=== PATIENT | female | born 1985 | race Asian ===

== ENCOUNTER 2019-11-28 18:10 | Emergency (ER) | payer MEDICAID ==
[~2019-11-28] VITALS: Ht 160 cm; Wt 46.7 kg
--- NOTE | 2019-11-28 18:15 | NUR ---
ER BED 16 PT CAME IN WITH CHEIF COMPLAINT OF BRUISING ON HER R LOWER EXT. STATES THAT 2 DAYS AGO THERE WAS SOME TENDERNESS AND MILD SWELLING BUT THAT ITS GONE NOW. NO SWELLING NOTED TO BLE AT THIS TIME. PT ALSO DENIES PAIN OR DISCOMFORT OF DIFFICULTY WALKING. AWAITING TO BE SEN BY
[2019-11-28 19:09] VITALS: BP 126/72
--- NOTE | 2019-11-28 19:10 | NUR ---
DOPPLER US TECH CURRENTLY IN PTS ROOM, PERFORMING DOPPLER. AWAITING RESULTS.
== END 2019-11-28 19:58 | disposition home or self-care (01) ==
LOC: ER 18:22
DX: M79.661 Pain in right lower leg (principal); R22.41 Localized swelling, mass and lump, right lower limb; J45.909 Unspecified asthma, uncomplicated; Z91.011 Allergy to milk products; Z91.018 Allergy to other foods; Z86.718 Personal history of other venous thrombosis and embolism
CPT/HCPCS: 93971-TC

== ENCOUNTER 2020-09-07 05:14 | Emergency (ER) | payer MEDICAID ==
[~2020-09-07] VITALS: Ht 160 cm; Wt 47.6 kg
--- NOTE | 2020-09-07 05:23 | NUR ---
PATIENT CAME TO ER BED 16 C/O RIGHT UPPER ABDOMINAL PAIN SINCE TONIGHT. PATIENT STATES THAT SHE IS CURRENTLY ON HER MENSTRUAL PERIOD. PATIENT IS ALERT AND ORIENTED x4. DENIES SHORTNESS OF BREATH. CONNECTED TO THE AUDIO VISUAL FACILITIES ENGINEER.
--- NOTE | 2020-09-07 05:30 | NUR ---
BLOOD COLLECTED AND SENT TO THE LAB
[2020-09-07] MEDS ORDERED: ONDANSETRON HCL/PF 4 MG/2 ML VIAL ONE (05:45)
[2020-09-07] MEDS ORDERED: MORPHINE SULFATE INJ 4 MG/ML DISP.SYRIN ONE (05:45)
[2020-09-07 06:00] LABS: BASOPHILS # (AUTO) 0.1 /CMM (0.0-0.2); BASOPHILS % (AUTO) 0.9 % (0.0-2.0); EOSINOPHILS % (AUTO) 2.8 % (0.0-6.0); HEMATOCRIT 40 % (33-45); HEMOGLOBIN 13.5 g/dL (11.5-14.8); LYMPHOCYTES # (AUTO) 1.9 /CMM (0.8-4.8); LYMPHOCYTES % (AUTO) 28.7 % (20.0-44.0); MEAN CORPUSCULAR HGB CONC 34 g/dl (31.0-36.0); MEAN CORPUSCULAR VOLUME 93 fL (82-100); MONOCYTES # (AUTO) 0.7 /CMM (0.1-1.30); MONOCYTES % (AUTO) 10.9 % (2.0-12.0); NEUTROPHILS # (AUTO) 3.7 /CMM (1.8-8.9); NEUTROPHILS % (AUTO) 56.7 % (43.0-81.0); PLATELET COUNT (AUTO) 287 /CMM (150-450); WHITE BLOOD COUNT (AUTO) 6.4 K/uL (4.3-11.0)
[2020-09-07] MEDS ORDERED: ONDANSETRON HCL/PF 4 MG/2 ML VIAL IVP ONE (06:00)
[2020-09-07] MEDS ORDERED: MORPHINE SULFATE INJ 2 MG/ML DISP.SYRIN IV ONE (06:00)
[2020-09-07] MEDS ORDERED: IV NS 0.9% 500 ML BAG IV ONE (06:00)
[2020-09-07 06:09] LABS: CREATININE 0.7 mg/dL (0.6-1.3); POTASSIUM 4.1 mmol/L (3.5-5.1)
[2020-09-07 06:14] LABS: ALBUMIN 3.9 g/dL (3.4-5.0); BILIRUBIN,DIRECT 0.1 mg/dL (0.0-0.2); BILIRUBIN,TOTAL 0.4 mg/dL (0.2-1.0); TOTAL PROTEIN, SERUM 7.8 g/dL (6.4-8.2)
[2020-09-07] MEDS ORDERED: HYDROMORPHONE INJ 2 MG/ML DISP.SYRIN IV ONE ×2 (06:30→09:00)
[2020-09-07] MEDS ORDERED: HYDROMORPHONE 1 MG/1 ML DISP.SYRIN ONE (06:38)
[2020-09-07] MEDS ORDERED: IOHEXOL-300 100 ML VIAL IV ONE (06:55)
[2020-09-07] MEDS ORDERED: CT SWABBABLE VALVE TRANS SET 1 EA INFUS.SET MC ONE (06:56)
[2020-09-07] MEDS ORDERED: IV NS 0.9% 250 ML IV ONE (06:56)
--- NOTE | 2020-09-07 07:48 | NUR ---
urine collected and sent to the lab
[2020-09-07 08:13] LABS: BILIRUBIN,URINE Negative (NEGATIVE); COLOR,URINE LIGHT YELLOW (YELLOW); LEUKOCYTE ESTERASE ,URINE Negative (NEGATIVE); NITRITE, URINE Negative (NEGATIVE); PROTEIN,URINE Negative (NEGATIVE); UGLUCOSE Negative (NEGATIVE); UROBILINOGEN,URINE 0.2 EU/dL (0.2)
[2020-09-07 08:34] LABS: BACTERIA,URINE Rare /HPF (None Seen); WBC,URINE 0-2 /HPF (0-3)
[2020-09-07 08:35] LABS: SQUAMOUS EPITHELIAL CELL,UR Few /HPF (None Seen)
[2020-09-07] MEDS ORDERED: HYDROMORPHONE INJ 2 MG/ML DISP.SYRIN ONE (08:55)
[2020-09-07] MEDS ORDERED: OXYC-133 PO (08:55)
[2020-09-07 09:13] VITALS: BP 109/64
--- NOTE | 2020-09-07 09:13 | NUR ---
Patient discharged to home in stable condition. Written and verbal after care instructions given. Patient verbalizes understanding of instruction.
== END 2020-09-07 09:13 | disposition home or self-care (01) ==
LOC: ER 05:16
DX: R10.13 Epigastric pain (principal); N80.1 Endometriosis of ovary; J45.909 Unspecified asthma, uncomplicated; Z98.890 Other specified postprocedural states; Z91.011 Allergy to milk products; Z91.018 Allergy to other foods; Z79.899 Other long term (current) drug therapy
CPT/HCPCS: 36415; 71045; 74177; 76705; 80048; 80076; 81001; 83690; 84703; 85025; 96361; 96374; 96375; 96376; 99285; J1170 ×2; J2270; J2405; J7040; J7050; Q9967

== ENCOUNTER 2021-03-06 06:39 | Emergency (ER) | payer MEDICAID ==
[~2021-03-06] VITALS: Ht 160 cm; Wt 43.1 kg
[~2021-03-06 06:39] MED LIST: OXYC-133 PO
--- NOTE | 2021-03-06 07:05 | NUR ---
PT BIBSELF C/O LOWER ABD PAIN X2 DAYS. PT AAOX4 BREATHING EVENLY AND UNLABORED. PT ATTACHED TO MONITOR AND POX. MD AT BEDSIDE FOR EVAL. RT FA 20G INITATED AND BLOOD OBTAINED AND SENT TO LAB. PT GIVEN BLANKET AND CALL LIGHT WITHIN REACH
[2021-03-06] MEDS ORDERED: HYDROMORPHONE 1 MG/1 ML DISP.SYRIN ONE (07:18)
[2021-03-06] MEDS ORDERED: ONDANSETRON HCL/PF 4 MG/2 ML VIAL ONE (07:18)
[2021-03-06] MEDS ORDERED: IV NS 0.9% 1,000 ML BAG IV ONE (07:30)
[2021-03-06] MEDS ORDERED: ONDANSETRON HCL/PF 4 MG/2 ML VIAL IVP ONE (07:30)
[2021-03-06] MEDS ORDERED: HYDROMORPHONE INJ 2 MG/ML DISP.SYRIN IV ONE (07:30)
--- NOTE | 2021-03-06 07:41 | NUR ---
GAVE REPORT TO ROBSON JONES FOR PHIL
[2021-03-06 07:42] LABS: BASOPHILS % (AUTO) 0.3 % (0.0-2.0); EOSINOPHILS % (AUTO) 1.7 % (0.0-6.0); HEMATOCRIT 38 % (33-45); HEMOGLOBIN 12.7 g/dL (11.5-14.8); LYMPHOCYTES # (AUTO) 1.2 K/uL (0.8-4.8); LYMPHOCYTES % (AUTO) 10.2 % (20.0-44.0); MEAN CORPUSCULAR HGB CONC 33 g/dl (31.0-36.0); MEAN CORPUSCULAR VOLUME 98 fL (82-100); MONOCYTES # (AUTO) 0.5 K/uL (0.1-1.30); MONOCYTES % (AUTO) 4.2 % (2.0-12.0); NEUTROPHILS # (AUTO) 9.9 K/uL (1.8-8.9); NEUTROPHILS % (AUTO) 83.6 % (43.0-81.0); PLATELET COUNT (AUTO) 276 K/uL (150-450); RED BLOOD CELL COUNT(AUTO) 3.94 MIL/uL (4.0-5.2); WHITE BLOOD COUNT (AUTO) 11.9 K/uL (4.3-11.0)
[2021-03-06 07:51] LABS: CALCIUM, SERUM 8.5 mg/dL (8.5-10.1); CREATININE 0.8 mg/dL (0.6-1.3); POTASSIUM 3.7 mmol/L (3.5-5.1)
[2021-03-06 07:56] LABS: ALBUMIN 3.8 g/dL (3.4-5.0); BILIRUBIN,DIRECT 0.1 mg/dL (0.0-0.2); BILIRUBIN,TOTAL 0.3 mg/dL (0.2-1.0); TOTAL PROTEIN, SERUM 7.7 g/dL (6.4-8.2)
--- NOTE | 2021-03-06 08:11 | NUR ---
THE PATIENT UNABLE TO PROVIDE URINE SPECIMEN AT THIS TIME. WILL TRY TO URINATE LATER.
[2021-03-06] MEDS ORDERED: HYDR-3980 PO (08:20)
[2021-03-06] MEDS ORDERED: KETOROLAC TROMETHAMINE INJ 30 MG/ML VIAL IV ONE (08:30)
--- NOTE | 2021-03-06 09:01 | NUR ---
URINE COLLECTED AND SENT TO THE LAB
[2021-03-06 09:09] LABS: BILIRUBIN,URINE NEGATIVE (NEGATIVE); COLOR,URINE YELLOW (YELLOW); LEUKOCYTE ESTERASE ,URINE NEGATIVE (NEGATIVE); NITRITE, URINE NEGATIVE (NEGATIVE); PROTEIN,URINE NEGATIVE (NEGATIVE); UGLUCOSE NEGATIVE (NEGATIVE); UROBILINOGEN,URINE 0.2 EU/dL (0.2)
[2021-03-06] MEDS ORDERED: KETOROLAC TROMETHAMINE 15 MG/ML VIAL ONE (09:15)
--- NOTE | 2021-03-06 09:23 | NUR ---
The patient is alert and oriented x4. Denies SOB. Respiration regular and unlabored. The patient is given ordered Toradol for lower abdominal pain 08/02. The patient did not want to wait for pain reassessment. IV removed. Catheter intact and site benign. Pressure and 4x4 applied to site. No bleeding noted.Patient discharged to home in stable condition. Written and verbal after care instructions given. Patient verbalizes understanding of instruction. The patient is picked up by her .
[2021-03-06 09:25] VITALS: BP 115/67
[2021-03-06 11:45] LABS: WBC,URINE 0-2 /HPF (0-3)
[2021-03-06 11:46] LABS: SQUAMOUS EPITHELIAL CELL,UR Few /HPF (None Seen)
[2021-03-06 11:47] LABS: BACTERIA,URINE Few /HPF (None Seen)
== END 2021-03-06 09:25 | disposition home or self-care (01) ==
LOC: ER 06:39
DX: R10.2 Pelvic and perineal pain (principal); J45.909 Unspecified asthma, uncomplicated; Z98.890 Other specified postprocedural states; Z91.011 Allergy to milk products; Z91.018 Allergy to other foods
CPT/HCPCS: 36415; 80048; 80076; 81001; 83690; 84703; 85025; 96361; 96374; 96375; 99284; J1170; J1885; J2405

== ENCOUNTER 2021-04-05 00:51 | Inpatient (IN) | payer OTHER ==
[~2021-04-05] VITALS: Ht 160 cm; Wt 44.5 kg
[~2021-04-05 00:51] MED LIST changes: +HYDR-3980 PO
--- NOTE | 2021-04-05 01:36 | NUR ---
PT BIB . DIFFUSED ABD PAIN X TODAY. +N/+V, BLOATING, CONSTIPATED X2 DAYS. PLACED IN BED 16 ON MONITOR AND PULSE OX. ER MD AT BEDSIDE FOR EVAL, AWAITING ORDERS.
[2021-04-05] MEDS ORDERED: ONDANSETRON HCL/PF 4 MG/2 ML VIAL ONE ×2 (02:52→12:33)
[2021-04-05] MEDS ORDERED: KETOROLAC TROMETHAMINE INJ 30 MG/ML VIAL ONE (02:52)
[2021-04-05] MEDS ORDERED: ONDANSETRON HCL/PF 4 MG/2 ML VIAL IV ONE (03:00)
[2021-04-05] MEDS ORDERED: IV NS 0.9% 1,000 ML IV ONE (03:00)
[2021-04-05] MEDS ORDERED: FAMOTIDINE/PF INJ 20 MG/2 ML VIAL IV ONE ×2 (03:00→03:03)
[2021-04-05] MEDS ORDERED: KETOROLAC TROMETHAMINE INJ 30 MG/ML VIAL IV ONE (03:00)
--- NOTE | 2021-04-05 03:45 | NUR ---
SIGNED WAIVER, GOING TO CT.
--- NOTE | 2021-04-05 03:47 | NUR ---
TAKEN TO CT
[2021-04-05 03:56] LABS: BASOPHILS % (AUTO) 0.2 % (0.0-2.0); EOSINOPHILS % (AUTO) 0.4 % (0.0-6.0); HEMATOCRIT 38 % (33-45); LYMPHOCYTES # (AUTO) 1.3 K/uL (0.8-4.8); LYMPHOCYTES % (AUTO) 11.5 % (20.0-44.0); MEAN CORPUSCULAR HGB CONC 34 g/dl (31.0-36.0); MEAN CORPUSCULAR VOLUME 93 fL (82-100); MONOCYTES # (AUTO) 0.6 K/uL (0.1-1.30); MONOCYTES % (AUTO) 5.3 % (2.0-12.0); NEUTROPHILS # (AUTO) 9.6 K/uL (1.8-8.9); NEUTROPHILS % (AUTO) 82.6 % (43.0-81.0); PLATELET COUNT (AUTO) 288 K/uL (150-450); RED BLOOD CELL COUNT(AUTO) 4.08 MIL/uL (4.0-5.2); WHITE BLOOD COUNT (AUTO) 11.6 K/uL (4.3-11.0)
--- NOTE | 2021-04-05 04:00 | NUR ---
BROUGHT BACK FROM CT
[2021-04-05 04:17] LABS: ALBUMIN 3.9 g/dL (3.4-5.0); BILIRUBIN,DIRECT 0.1 mg/dL (0.0-0.2); BILIRUBIN,TOTAL 0.4 mg/dL (0.2-1.0); CALCIUM, SERUM 9.2 mg/dL (8.5-10.1); CREATININE 0.7 mg/dL (0.6-1.3); TOTAL PROTEIN, SERUM 7.7 g/dL (6.4-8.2)
[2021-04-05 04:39] LABS: POTASSIUM 2.8 mmol/L (3.5-5.1)
--- NOTE | 2021-04-05 04:56 | NUR ---
DR HOUSER ON THE PHONE W/ DR MENDOZA GEN SURGEON
--- NOTE | 2021-04-05 04:59 | NUR ---
PAGED DR COLMENARES HE'S FARMWORKER CRANBERRY INSTEAD. ON THE PHONE
--- NOTE | 2021-04-05 04:59 | NUR ---
CALLED FOR COVID TEST
[2021-04-05] MEDS ORDERED: POTASSIUM CHLORIDE 20 MEQ TAB.PRT.SR PO ONE (05:00)
[2021-04-05] MEDS ORDERED: HYDROCORTISONE SOD SUCCINATE 100 MG/2 ML VIAL IV ONE (05:00)
[2021-04-05] MEDS ORDERED: IV NS 0.9% 1,000 ML BAG IV ONE (05:00)
[2021-04-05] MEDS ORDERED: HYDROCORTISONE SOD SUCCINATE 100 MG/2 ML VIAL IV SCH (05:00)
[2021-04-05] MEDS ORDERED: AMPICILLIN 3 GM in IV NS 0.9% 100 ML IV SCH (05:30)
[2021-04-05] MEDS ORDERED: FLAGYL/NS RTU 500 MG/100 ML PIGGYBACK IV ONE (05:30)
[2021-04-05] MEDS ORDERED: GENTAMICIN IV ONE ×2 (05:30→07:00)
[2021-04-05] MEDS ORDERED: D5W IV ONE ×2 (05:30→07:00)
--- NOTE | 2021-04-05 06:20 | NUR ---
CALLED FOR COVID SWAB
[2021-04-05] MEDS ORDERED: IV NS 0.9% 250 ML IV ONE (06:40)
[2021-04-05] MEDS ORDERED: IOHEXOL-300 100 ML VIAL IV ONE (06:40)
[2021-04-05 06:41] LABS: BILIRUBIN,URINE NEGATIVE (NEGATIVE); COLOR,URINE YELLOW (YELLOW); LEUKOCYTE ESTERASE ,URINE NEGATIVE (NEGATIVE); NITRITE, URINE NEGATIVE (NEGATIVE); PH,URINE 8.5 (5.0-8.0); PROTEIN,URINE 30 mg/dl (NEGATIVE); UGLUCOSE NEGATIVE (NEGATIVE); UROBILINOGEN,URINE 0.2 EU/dL (0.2)
[2021-04-05 06:46] LABS: BACTERIA,URINE None seen /HPF (None Seen); CALCIUM OXALATE CRYSTALS,UR Few /HPF (None Seen); RBC,URINE 0-2 /HPF (0-2); SQUAMOUS EPITHELIAL CELL,UR Few /HPF (None Seen); WBC,URINE 0-2 /HPF (0-3)
[2021-04-05] MEDS ORDERED: AMPICILLIN SODIUM 2 GM in IV NS 0.9% 100 ML IV ONE (07:00)
[2021-04-05] MEDS ORDERED: PANTOPRAZOLE 40 MG VIAL IV ONE (07:00)
[2021-04-05] MEDS ORDERED: MAGNESIUM HYDROXIDE 30 ML UDC PO PRN (08:30)
[2021-04-05] MEDS ORDERED: Z GUARD REMEDY 4 OZ OINT TP PRN (08:30)
[2021-04-05] MEDS: PANTOPRAZOLE 40 MG VIAL IV SCH (09:00)
[2021-04-05] MEDS: ENOXAPARIN SODIUM 40 MG/0.4 ML DISP.SYRIN SQ SCH (09:30)
[2021-04-05] MEDS ORDERED: PANTOPRAZOLE 40 MG VIAL ONE (10:02)
[2021-04-05] MEDS ORDERED: ENOXAPARIN SODIUM 40 MG/0.4 ML DISP.SYRIN SQ ONE (10:02)
[2021-04-05] MEDS ORDERED: HYDROCORTISONE SOD SUCCINATE 100 MG/2 ML VIAL ONE (12:33)
[2021-04-05] MEDS ORDERED: MORPHINE SULFATE INJ 4 MG/ML DISP.SYRIN ONE (12:34)
[2021-04-05] MEDS: ONDANSETRON HCL/PF 4 MG/2 ML VIAL IVP PRN ×2 (12:41→21:53)
[2021-04-05] MEDS: HYDROCORTISONE SOD SUCCINATE 100 MG/2 ML VIAL IV SCH ×2 (12:42→21:53)
[2021-04-05] MEDS: IV D5/ 0.9% NACL 1,000 ML IV PRN ×2 (12:42→17:54)
[2021-04-05] MEDS: MORPHINE SULFATE INJ 2 MG/ML DISP.SYRIN IV PRN (12:43)
[2021-04-05 12:51] LABS: CALCIUM, SERUM 7.9 mg/dL (8.5-10.1); CREATININE 0.6 mg/dL (0.6-1.3); POTASSIUM 3.9 mmol/L (3.5-5.1)
[2021-04-05] MEDS: PIPERACILLIN /TAZOBACTAM 3.375 G in IV D5W 50 ML IV SCH ×2 (12:54→17:54)
--- NOTE | 2021-04-05 14:06 | NUR ---
THE PATIENT REFUSES NG TUBE PLACEMENT. FLAKITO ARRIAGA MADE AWARE.
[2021-04-05] MEDS ORDERED: MAG HYDROX/AL HYDROX/SIMETH 30 ML UDC ONE (14:41)
[2021-04-05] MEDS ORDERED: MAGNESIUM HYDROXIDE 30 ML UDC ONE (14:41)
[2021-04-05] MEDS: MAG HYDROX/AL HYDROX/SIMETH 30 ML UDC PO PRN (14:47)
--- NOTE | 2021-04-05 14:48 | NUR ---
PT C/O CONSTIPATION AND "GAS" IN LOWER ABD; ADMINISTERED MAALOX AND MOM ORDERED. WILL REASSESS PT.
--- NOTE | 2021-04-05 15:54 | NUR ---
REPORT GIVEN TO NURSE LINCOLN FOR PHIL
--- NOTE | 2021-04-05 16:10 | NUR ---
THE PATIENT IS TRANSFERED TO [facility] IN STABLE CONDITION AND PER POLICY.
[2021-04-05 16:20] VITALS: BP 128/79
--- NOTE | 2021-04-05 16:20 | NUR ---
MS LIP CUTTER NOTES RECEIVED PATIENT FROM ER ENDORSED BY ELIZABETH. PATIENT IS AWAKE AND A/O X4. ON ROOM AIR TOLERATING WELL. NO SOB NOTED. NOT IN DISTRESS. PATIENT STATED SHE HAS PAIN ON HER LOWER ABDOMEN AT THE SCALE OF 4/10 AND FEELS BLOATED. SKIN IS INTACT. WITH IV ACCESS AT RIGHT HAND G20 PATENT AND INTACT. MADE COMFORTABLE ON BED. SAFETY MEASURES IN PLACED. CALL LIGHT WITHIN REACH. BED ON LOWEST LOCKED POSITION, SIDE RAILS UP X2. WILL CONTINUE TO MONITOR.
--- NOTE | 2021-04-05 18:50 | NUR ---
MS RN CLOSING NOTES PATIENT SITTING ON BED, AWAKE AND A/O X4. ON ROOM AIR SATURATING WELL. NO SOB NOTED. NOT IN DISTRESS. WITH IV ACCESS AT RIGHT HAND G20 WITH D5NS AT 100ML/HR INFUSING WELL. SAFETY MEASURES IN PLACED. CALL LIGHT WITHIN REACH. BED ON LOWEST LOCKED POSITION, SIDE RAILS UP X2. WILL CONTINUE TO MONITOR.
[2021-04-05 20:59] VITALS: BP 142/94
--- NOTE | 2021-04-05 21:12 | NUR ---
REPORTS GIVEN TO ROBSON GRIJALVA FOR CONTINUITY OF CARE.
--- NOTE | 2021-04-05 21:13 | NUR ---
MS RN NOTE PATIENT RECEIVED FROM [facility] D/T [facility] BEING TRANSFERRED TO [place] [id number]. PATIENT IS AWAKE IN BED, BUT IS PLEASANT O/W. A/OX4.
--- NOTE | 2021-04-05 23:15 | NUR ---
MS RN NOTE NGT PLACED IN RIGHT NARIS. 16F MEASURED TO 57. GASTRIC CONTENTS CAME THROUGH TUBE. VERIFIED W STETHOSCOPE AND 30CC OF AIR IN GASTRIC AREA. PATIENT STATED SOME IMMEDIATE RELIEF.
[2021-04-06] MEDS: PIPERACILLIN /TAZOBACTAM 3.375 G in IV D5W 50 ML IV SCH ×4 (00:37→17:17)
[2021-04-06] MEDS: HYDROCORTISONE SOD SUCCINATE 100 MG/2 ML VIAL IV SCH (05:49)
--- NOTE | 2021-04-06 07:00 | NUR ---
MS CLOSING NOTE PATIENT AWAKE IN BED. A/OX4. NO S/S OF DISTRESS, BREATHING SYMMETRICAL. SAFETY MEASURES IN PLACE: BED AT LOWEST LEVEL, RAILS UP X2, CALL ELLIS WITHIN REACH. WILL ENDORSE TO NEXT SHIFT FOR PHIL.
[2021-04-06 07:06] LABS: BASOPHILS % (AUTO) 0.2 % (0.0-2.0); HEMATOCRIT 36 % (33-45); HEMOGLOBIN 12.3 g/dL (11.5-14.8); LYMPHOCYTES # (AUTO) 1.3 K/uL (0.8-4.8); LYMPHOCYTES % (AUTO) 16.2 % (20.0-44.0); MEAN CORPUSCULAR HGB CONC 34 g/dl (31.0-36.0); MEAN CORPUSCULAR VOLUME 95 fL (82-100); MONOCYTES # (AUTO) 0.5 K/uL (0.1-1.30); MONOCYTES % (AUTO) 5.7 % (2.0-12.0); NEUTROPHILS # (AUTO) 6.3 K/uL (1.8-8.9); NEUTROPHILS % (AUTO) 77.9 % (43.0-81.0); PLATELET COUNT (AUTO) 285 K/uL (150-450); RED BLOOD CELL COUNT(AUTO) 3.79 MIL/uL (4.0-5.2); WHITE BLOOD COUNT (AUTO) 8.1 K/uL (4.3-11.0)
[2021-04-06 08:00] VITALS: BP 125/78
[2021-04-06 08:01] LABS: CALCIUM, SERUM 8.2 mg/dL (8.5-10.1); CREATININE 0.6 mg/dL (0.6-1.3); MAGNESIUM 2.2 mg/dL (1.8-2.4); PHOSPHORUS 3.2 mg/dL (2.5-4.9); POTASSIUM 3.7 mmol/L (3.5-5.1)
[2021-04-06 08:16] LABS: THYROID STIMULATING HORMONE 0.43 uIU/mL (0.358-3.74)
[2021-04-06] MEDS: PANTOPRAZOLE 40 MG VIAL IV SCH (08:23)
[2021-04-06] MEDS: ENOXAPARIN SODIUM 40 MG/0.4 ML DISP.SYRIN SQ SCH (08:25)
[2021-04-06] MEDS: MORPHINE SULFATE INJ 2 MG/ML DISP.SYRIN IV PRN (08:36)
[2021-04-06] MEDS: ONDANSETRON HCL/PF 4 MG/2 ML VIAL IVP PRN ×2 (13:36→18:37)
--- NOTE | 2021-04-06 13:49 | NUR ---
RN NOTES PATIENT SEEN BY DR. ARRIAGA W/ ORDERS NOTED. OK FOR PATIENT TO HAVE ICE CHIPS FOR NOW. PATIENT TAKEN TO RADIOLOGY FOR MRI PROCEDURE VIA WHEELCHAIR, ACCOMPANIED BY 3 RAD TECHS.
--- NOTE | 2021-04-06 15:17 | NUR ---
RN NOTES PATIENT RETURNED FROM RADIOLOGY PROCEDURE VIA WHEELCHAIR, ACCOMPANIED BY 2 RAD TECHS.
[2021-04-06 16:00] VITALS: BP 123/78
[2021-04-06] MEDS ORDERED: GADOTERATE MEGLUMINE 5 MMOL/10 ML VIAL IV ONE (16:31)
[2021-04-06] MEDS: IV D5/ 0.9% NACL 1,000 ML IV PRN (16:39)
[2021-04-06] MEDS: VANCOMYCIN HCL 0.75 GM in IV D5W 250 ML IV SCH (18:07)
--- NOTE | 2021-04-06 18:58 | NUR ---
RN NOTES PATIENT REQUESTED FOR ZOFRAN D/T COMPLAINT OF NAUSEA; MEDICATED INDICATED. HOT PACKS PROVIDED TO PATIENT FOR ABDOMINAL CRAMPS, APPRECIATED BY PATIENT. CURRENTLY RESTING IN BED, NOT IN ACUTE DISTRESS. IVF/ATB INFUSING WELL. SAFETY MEASURES MAINTAINED. WILL ENDORSE TO VICE PRESIDENT PRECISION MARKET INSIGHTS RN FOR PHIL.
--- NOTE | 2021-04-06 19:30 | NUR ---
MS RN NOTE RECEIVED PATIENT IN BED. A/OX4. AMBULATORY. NO S/S OF APPARENT DISTRESS ON ROOM AIR. PAIN TOLERABLE AT THE MOMENT AND NOT WANTING PAIN MEDICATION. NG TUBE NOTED AT THIS TIME-- SUCTIONING BROWN DRAINAGE. IV D5 NS RUNNING @100ML/HR. SAFETY IN PLACE. WILL CONTINUE WITH PATIENT'S PLAN OF CARE.
[2021-04-06 20:00] VITALS: BP 126/81
[2021-04-06] MEDS: LORAZEPAM INJ 2 MG/ML VIAL IV PRN (22:43)
[2021-04-07] MEDS: PIPERACILLIN /TAZOBACTAM 3.375 G in IV D5W 50 ML IV SCH ×5 (00:08→23:12)
[2021-04-07] MEDS: VANCOMYCIN HCL 0.75 GM in IV D5W 250 ML IV SCH ×3 (02:05→19:11)
[2021-04-07] MEDS: ONDANSETRON HCL/PF 4 MG/2 ML VIAL IVP PRN ×3 (04:09→17:38)
[2021-04-07] MEDS: MORPHINE SULFATE INJ 2 MG/ML DISP.SYRIN IV PRN ×2 (04:10→08:49)
[2021-04-07] MEDS: LORAZEPAM INJ 2 MG/ML VIAL IV PRN ×3 (06:11→21:29)
[2021-04-07 07:22] LABS: BASOPHILS # (AUTO) 0.1 K/uL (0.0-0.2); BASOPHILS % (AUTO) 0.6 % (0.0-2.0); EOSINOPHILS % (AUTO) 0.1 % (0.0-6.0); HEMATOCRIT 36 % (33-45); HEMOGLOBIN 12.3 g/dL (11.5-14.8); LYMPHOCYTES # (AUTO) 2.5 K/uL (0.8-4.8); LYMPHOCYTES % (AUTO) 25.5 % (20.0-44.0); MEAN CORPUSCULAR HGB CONC 34 g/dl (31.0-36.0); MEAN CORPUSCULAR VOLUME 96 fL (82-100); MONOCYTES # (AUTO) 0.8 K/uL (0.1-1.30); MONOCYTES % (AUTO) 8.4 % (2.0-12.0); NEUTROPHILS # (AUTO) 6.5 K/uL (1.8-8.9); NEUTROPHILS % (AUTO) 65.4 % (43.0-81.0); PLATELET COUNT (AUTO) 269 K/uL (150-450); RED BLOOD CELL COUNT(AUTO) 3.79 MIL/uL (4.0-5.2); WHITE BLOOD COUNT (AUTO) 9.9 K/uL (4.3-11.0)
--- NOTE | 2021-04-07 07:38 | NUR ---
MS RN NOTE REPORT GIVEN TO FREDDY FOR CONTINUITY OF CARE.
[2021-04-07 08:00] VITALS: BP 120/71
[2021-04-07 08:14] LABS: CALCIUM, SERUM 8.3 mg/dL (8.5-10.1); CREATININE 0.8 mg/dL (0.6-1.3); POTASSIUM 3.3 mmol/L (3.5-5.1)
[2021-04-07] MEDS: PANTOPRAZOLE 40 MG VIAL IV SCH (08:48)
[2021-04-07] MEDS: ENOXAPARIN SODIUM 40 MG/0.4 ML DISP.SYRIN SQ SCH (08:50)
[2021-04-07] MEDS: IV D5/ 0.9% NACL 1,000 ML IV PRN (11:13)
[2021-04-07] MEDS ORDERED: IV NS 0.9% 250 ML IV ONE (11:36)
[2021-04-07] MEDS ORDERED: IOHEXOL-300 100 ML VIAL IV ONE (11:36)
[2021-04-07] MEDS: POTASSIUM CL. PREMIX PERIPHER. 50 ML IV SCH ×2 (13:50→15:15)
[2021-04-07 16:00] VITALS: BP 118/80
[2021-04-07 18:06] LABS: CANCER AG, 125 49.2 U/mL (0.0-38.1)
--- NOTE | 2021-04-07 19:30 | NUR ---
MS RN OPENING NOTE RECEIVED PT AWAKE IN BED. A/OX4. PT STABLE ON ROOM AIR. NO SOB OR S/S OF RESPIRATORY DISTRESS. NG TUBE NOTED AT THIS TIME-- SUCTIONING BROWN DRAINAGE. IV ACCESS RFA 20 GAUGE, INTACT AND PATENT, D5 NS RUNNING @100ML/HR. SAFETY PRECAUTIONS IN PLACE. BED IN LOWEST LOCKED POSITION, HOB ELEVATED, SIDE RAILS UP X2, AND CALL LIGHT AND TABLE WITHIN REACH. WILL CONTINUE WITH PLAN OF CARE.
[2021-04-07 20:00] VITALS: BP 133/74
--- NOTE | 2021-04-07 20:00 | NUR ---
MS/RN CLOSING NOTE PATIENT IN BED. A/OX4. AMBULATORY. NO S/S OF APPARENT DISTRESS ON ROOM AIR. PAIN TOLERABLE AT THE MOMENT AND NOT WANTING PAIN MEDICATION. NG TUBE NOTED AT THIS TIME-- SUCTIONING BROWN DRAINAGE. IV D5 NS RUNNING @100ML/HR. SAFETY IN PLACE. WILL ENDORSE TO THE NEXT SHIFT FOR PHIL;.
--- NOTE | 2021-04-07 21:29 | NUR ---
RN NOTE PT COMPLAINED OF ANXIETY. ADMINISTERED ATIVAN 0.5 MG ORDERED FOR ANXIETY. WILL CONTINUE TO MONITOR.
[2021-04-08] MEDS: VANCOMYCIN HCL 0.75 GM in IV D5W 250 ML IV SCH ×3 (01:08→18:12)
[2021-04-08] MEDS: ONDANSETRON HCL/PF 4 MG/2 ML VIAL IVP PRN (01:41)
--- NOTE | 2021-04-08 01:41 | NUR ---
RN NOTE PT COMPLAINED OF NAUSEA. NO EMESIS PRESENT. ADMINISTERED ZOFRAN 4 MG ORDERED FOR NAUSEA. WILL CONTINUE TO MONITOR.
[2021-04-08] MEDS: MORPHINE SULFATE INJ 2 MG/ML DISP.SYRIN IV PRN (05:57)
--- NOTE | 2021-04-08 05:57 | NUR ---
RN NOTE PT COMPLAINED OF PAIN 8/10 IN THE LOWER ABDOMEN. ADMINISTERED MORPHINE 4 MG ORDERED FOR SEVERE PAIN. WILL CONTINUE TO MONITOR.
[2021-04-08] MEDS: PIPERACILLIN /TAZOBACTAM 3.375 G in IV D5W 50 ML IV SCH ×4 (06:30→23:22)
[2021-04-08 06:50] LABS: BASOPHILS % (AUTO) 0.4 % (0.0-2.0); EOSINOPHILS % (AUTO) 0.4 % (0.0-6.0); HEMATOCRIT 36 % (33-45); HEMOGLOBIN 12.4 g/dL (11.5-14.8); LYMPHOCYTES # (AUTO) 1.8 K/uL (0.8-4.8); LYMPHOCYTES % (AUTO) 22.7 % (20.0-44.0); MEAN CORPUSCULAR HGB CONC 34 g/dl (31.0-36.0); MEAN CORPUSCULAR VOLUME 95 fL (82-100); MONOCYTES % (AUTO) 12.7 % (2.0-12.0); NEUTROPHILS # (AUTO) 4.9 K/uL (1.8-8.9); NEUTROPHILS % (AUTO) 63.8 % (43.0-81.0); PLATELET COUNT (AUTO) 249 K/uL (150-450); RED BLOOD CELL COUNT(AUTO) 3.78 MIL/uL (4.0-5.2); WHITE BLOOD COUNT (AUTO) 7.7 K/uL (4.3-11.0)
--- NOTE | 2021-04-08 06:56 | NUR ---
MS RN CLOSING NOTE PT AWAKE IN BED. A/OX4. PT STABLE ON ROOM AIR. NO SOB OR S/S OF RESPIRATORY DISTRESS. NG TUBE NOTED AT THIS TIME-- SUCTIONING BROWN DRAINAGE. IV ACCESS RFA 20 GAUGE, INTACT AND PATENT, D5 NS RUNNING @100ML/HR. ALL NEEDS MET AT THIS TIME. SAFETY PRECAUTIONS IN PLACE AT ALL TIMES. BED IN LOWEST LOCKED POSITION, HOB ELEVATED, SIDE RAILS UP X2, AND CALL LIGHT AND TABLE WITHIN REACH. WILL ENDORSE TO ONCOMING NURSE FOR PHIL.
[2021-04-08 07:28] LABS: CALCIUM, SERUM 8.4 mg/dL (8.5-10.1); CREATININE 0.9 mg/dL (0.6-1.3); POTASSIUM 3.6 mmol/L (3.5-5.1)
--- NOTE | 2021-04-08 07:45 | NUR ---
MS/RN OPENING NOTE PT AWAKE IN BED. A/OX4. PT STABLE ON ROOM AIR. NO SOB OR S/S OF RESPIRATORY DISTRESS. NG TUBE NOTED AT THIS TIME-- SUCTIONING BROWN DRAINAGE. IV ACCESS RFA 20 GAUGE, INTACT AND PATENT, D5 NS RUNNING @100ML/HR. SAFETY PRECAUTIONS IN PLACE. BED IN LOWEST LOCKED POSITION, HOB ELEVATED, SIDE RAILS UP X2, AND CALL LIGHT AND TABLE WITHIN REACH. WILL CONTINUE WITH PLAN OF CARE.
[2021-04-08] MEDS: IV D5/ 0.9% NACL 1,000 ML IV PRN ×2 (08:31→18:12)
[2021-04-08] MEDS: PANTOPRAZOLE 40 MG VIAL IV SCH (08:34)
[2021-04-08 10:19] VITALS: BP 137/75
--- NOTE | 2021-04-08 18:52 | NUR ---
MS/RN CLOSING NOTE PT AWAKE IN BED. A/OX4. PT STABLE ON ROOM AIR. NO SOB OR S/S OF RESPIRATORY DISTRESS. NG TUBE CLAMPED AT THIS TIME PER DR. ARRIAGA. IV ACCESS RFA 20 GAUGE, INTACT AND PATENT, D5 NS RUNNING @100ML/HR. ALL NEEDS MET AT THIS TIME. SAFETY PRECAUTIONS IN PLACE AT ALL TIMES. BED IN LOWEST LOCKED POSITION, HOB ELEVATED, SIDE RAILS UP X2, AND CALL LIGHT AND TABLE WITHIN REACH. WILL ENDORSE TO THE NEXT SHIFT FOR CONTINUITY OF CARE.
--- NOTE | 2021-04-08 19:30 | NUR ---
RN OPENING NOTE PATIENT IN BED AWAKE, PATIENT IS ABLE TO MAKE NEEDS KNOWN, A/O X 4. PATIENT IS ON RA, TOLERATING WELL. PATIENT HAS AN NGT PRESENT, CLAMPED AT THIS TIME. USED TO BE ON NGT SUCTION. PATIENT HAS A RFA 20 G WITH D5 NS @100ML/HR. INFUSING WELL. COMPLAINS OF MILD PAIN, REFUSES ANY PAIN MEDICATION AT THIS TIME. SAFETY MEASURES IN PLACE: BED LOCKED AND IN LOWEST POSITION CALL LIGHT WITHIN REACH, SIDE RAILS UP. WILL MONITOR PATIENT CLOSELY.
[2021-04-08 20:00] VITALS: BP 123/73
[2021-04-08] MEDS: LORAZEPAM INJ 2 MG/ML VIAL IV PRN (23:24)
--- NOTE | 2021-04-08 23:25 | NUR ---
RN NOTE ATIVAN GIVEN TO PATIENT D/T INCREASING FEELING OF ANXIOUSNESS. PATIENT STILL REFUSING ANY PAIN MEDICATION AT THIS TIME
[2021-04-09] MEDS: VANCOMYCIN HCL 0.75 GM in IV D5W 250 ML IV SCH ×3 (01:17→17:23)
[2021-04-09] MEDS: IV D5/ 0.9% NACL 1,000 ML IV PRN (04:34)
[2021-04-09] MEDS: PIPERACILLIN /TAZOBACTAM 3.375 G in IV D5W 50 ML IV SCH ×4 (05:30→23:07)
[2021-04-09] MEDS: LORAZEPAM INJ 2 MG/ML VIAL IV PRN ×2 (05:44→16:00)
--- NOTE | 2021-04-09 07:00 | NUR ---
RN CLOSING NOTE PATIENT IN BED AWAKE, PATIENT IS ABLE TO MAKE NEEDS KNOWN, A/O X 4. PATIENT IS ON RA, TOLERATING WELL. PATIENT HAS AN NGT PRESENT, CLAMPED AT THIS TIME. PATIENT HAS A RFA 20 G WITH D5 NS @100ML/HR. INFUSING WELL. COMPLAINS OF MILD PAIN, REFUSES ANY PAIN MEDICATION AT THIS TIME. ATIVAN LAST GIVEN AT 0544, PATIENT STATES THAT IT HELPS WITH HER PAIN WELL. SAFETY MEASURES IN PLACE: BED LOCKED AND IN LOWEST POSITION CALL LIGHT WITHIN REACH, SIDE RAILS UP. ALL NEEDS MET AND ATTENDED. ALL ORDERS CARRIED OUT. ENDORSED TO DAY SHIFT NURSE FOR PHIL.
[2021-04-09 07:19] LABS: BASOPHILS % (AUTO) 0.6 % (0.0-2.0); EOSINOPHILS % (AUTO) 1.7 % (0.0-6.0); HEMATOCRIT 32 % (33-45); HEMOGLOBIN 10.8 g/dL (11.5-14.8); LYMPHOCYTES # (AUTO) 1.7 K/uL (0.8-4.8); LYMPHOCYTES % (AUTO) 27.7 % (20.0-44.0); MEAN CORPUSCULAR HGB CONC 33 g/dl (31.0-36.0); MEAN CORPUSCULAR VOLUME 96 fL (82-100); MONOCYTES # (AUTO) 0.6 K/uL (0.1-1.30); MONOCYTES % (AUTO) 10.3 % (2.0-12.0); NEUTROPHILS # (AUTO) 3.6 K/uL (1.8-8.9); NEUTROPHILS % (AUTO) 59.7 % (43.0-81.0); PLATELET COUNT (AUTO) 232 K/uL (150-450); RED BLOOD CELL COUNT(AUTO) 3.38 MIL/uL (4.0-5.2)
[2021-04-09 07:46] LABS: CALCIUM, SERUM 7.5 mg/dL (8.5-10.1); CREATININE 0.9 mg/dL (0.6-1.3); POTASSIUM 3.3 mmol/L (3.5-5.1)
[2021-04-09 08:00] VITALS: BP 109/79
--- NOTE | 2021-04-09 08:25 | NUR ---
MS/RN NOTES- [facility] CALLED TO REPORT PATIENT'S BS IS 489 PER XOCHITL FROM CHEMISTRY, RE-CHECKED PATIENT'S BLOODSUGAR RESULT IS 110. PATIENT IS ALERT AND ORIENTEDX4, NO SYMPTOMS. CALLED LABS TO REPORT LATEST BS RESULT.
[2021-04-09] MEDS ORDERED: POTASSIUM CHLORIDE 20 MEQ POWDER PACKET PO ONE (10:00)
[2021-04-09] MEDS ORDERED: POTASSIUM CL. PREMIX PERIPHER. 50 ML IV SCH (10:00)
[2021-04-09] MEDS: PANTOPRAZOLE 40 MG VIAL IV SCH (10:30)
[2021-04-09] MEDS: MORPHINE SULFATE INJ 2 MG/ML DISP.SYRIN IV PRN ×2 (10:49→20:07)
--- NOTE | 2021-04-09 13:31 | NUR ---
MS/RN NOTES PATIENT PICKED UP BY OR STAFF NURSES FOR FLEX SIGMOIDOSCOPY PROCEDURE WITH DR. MCNAMARA.
[2021-04-09 13:40] LABS: IRON, SERUM 39 ug/dl (50-175); TOTAL IRON BINDING CAPACITY 210 ug/dl (250-450)
[2021-04-09 13:59] LABS: FERRITIN 52 ng/mL (8-388)
--- NOTE | 2021-04-09 15:55 | NUR ---
MS/RN NOTES PATIENT IS BACK FROM THE SIGMOIDOSCOPY PROCEDURE. PATIENT IS ALERT AND ORIENTED X4, ABLE TO MAKE NEEDS KNOWN. REPORTED TO HAVE ANXIETY. WILL ADMINISTER ANXIETY MED.
--- NOTE | 2021-04-09 17:24 | NUR ---
MS/RN NOTES- ZOSYN LAST DOSE WAS GIVEN LATE AT 16:00 DUE TO PATIENT WENT TO THE OR FOR A PROCEDURE. CALLED AND NOTIFY PHARMACY AND WAS ABLE TO SPEAK TO MAYCO- PER MAYCO, SKIP 18:00 DOSE AND TO GIVE MIDNIGHT DOSE EARLY. WILL ENDORSE TO THE NEXT SHIFT.
[2021-04-09 20:30] VITALS: BP 115/79
[2021-04-10] MEDS: LORAZEPAM INJ 2 MG/ML VIAL IV PRN ×3 (00:42→19:23)
[2021-04-10] MEDS: VANCOMYCIN HCL 0.75 GM in IV D5W 250 ML IV SCH ×3 (01:49→20:21)
[2021-04-10] MEDS: IV D5/ 0.9% NACL 1,000 ML IV PRN ×2 (02:30→17:25)
[2021-04-10] MEDS: PIPERACILLIN /TAZOBACTAM 3.375 G in IV D5W 50 ML IV SCH ×3 (06:10→17:25)
[2021-04-10] MEDS: MORPHINE SULFATE INJ 2 MG/ML DISP.SYRIN IV PRN (06:20)
--- NOTE | 2021-04-10 07:28 | NUR ---
MS RN CLOSING NOTE PATIENT SLEEPING IN BED, ALERT/ORIENTED X 4, PT ABLE TO MAKE NEEDS KNOWN. NO SIGNIFICANT CHANGES THROUGHOUT SHIFT, PT SLEPT WELL THROUGH THE NIGHT. PT STABLE ON RA, NO S/S OF DISTRESS OR SOB NOTED, BREATHING EVEN AND UNLABORED. RIGHT FOREARM IV ACCESS RUNNING D5NS @ 100 ML/HR. MEDICATIONS GIVEN ORDERED, PT NEEDS MET THROUGHOUT SHIFT. SAFETY MEASURES IN PLACE: CALL LIGHT WITHIN REACH, SIDE RAILS UP X 2, BED LOCKED IN LOW POSITION. ENDORSED TO DAY SHIFT NURSE FOR CONTINUITY OF CARE
[2021-04-10 08:00] VITALS: BP 115/71
--- NOTE | 2021-04-10 08:01 | NUR ---
MS RN OPENING NOTE Patient in bed, awake. A/O x 4, able to make needs known. On room air, breathing evenly and unlabored. No SOB or s/s of distress noted. IV access on RFA #20G infusing D5NS at 100 ml/hr. Denies any pain or discomfort at this time. Safety precautions in place: bed in low, locked position; siderails up x 2; call light within reach. Will continue to monitor.
[2021-04-10 08:11] LABS: CALCIUM, SERUM 8.6 mg/dL (8.5-10.1); CREATININE 0.9 mg/dL (0.6-1.3); POTASSIUM 3.9 mmol/L (3.5-5.1)
[2021-04-10] MEDS: PANTOPRAZOLE 40 MG VIAL IV SCH (08:54)
--- NOTE | 2021-04-10 10:23 | NUR ---
RN NOTE Vancomycin trough from 04/09/21 is 22, verified with pharmacy, held Vancomycin IV scheduled at 1000.
[2021-04-10] MEDS: MAG HYDROX/AL HYDROX/SIMETH 30 ML UDC PO PRN (10:49)
[2021-04-10] MEDS ORDERED: HYDROCODONE/APAP 5/325MG TABLET PO PRN (11:00)
[2021-04-10] MEDS: ONDANSETRON HCL/PF 4 MG/2 ML VIAL IVP PRN (11:01)
--- NOTE | 2021-04-10 11:01 | NUR ---
RN NOTE Patient complained of nausea and vomiting x 1 after eating breakfast. Gave PRN Zofran. Will continue to monitor.
--- NOTE | 2021-04-10 11:06 | NUR ---
RN NOTE Patient complained of pain 8/10 on abdomen. Gave PRN [place], will continue to monitor.
[2021-04-10] MEDS ORDERED: MORPHINE SULFATE INJ 4 MG/ML DISP.SYRIN IV PRN (12:30)
[2021-04-10 16:00] VITALS: BP 101/54
--- NOTE | 2021-04-10 19:34 | NUR ---
MS RN CLOSING NOTE Patient in bed, resting comfortably. A/O x 4, able to make needs known. Stable on room air, breathing evenly and unlabored. No SOB or s/s of distress noted. IV access on Left hand #22G infusing D5NS at 100 ml/hr. All needs attended to. Due meds given. Safety precautions maintained: bed in low, locked position; siderails up x 2; call light within reach. Will endorse to shift supervisor nurse for PHIL.
[2021-04-10 20:00] VITALS: BP 125/75
--- NOTE | 2021-04-10 20:05 | NUR ---
MS RN OPENING NOTE PATIENT RECEIVED AWAKE IN BED. A/OX4. NO S/S OF DISTRESS; BREATHING SYMMETRICALLY. #22 PATENT. SAFETY MEASURES IN PLACE: BED AT LOWEST POSITION, RAILS X2, CALL ELLIS WITHIN REACH. WILL CONTINUE TO MONITOR.
[2021-04-10] MEDS: MORPHINE SULFATE INJ 4 MG/ML DISP.SYRIN IV PRN (23:54)
[2021-04-11] MEDS: PIPERACILLIN /TAZOBACTAM 3.375 G in IV D5W 50 ML IV SCH ×5 (00:07→23:24)
[2021-04-11] MEDS: MORPHINE SULFATE INJ 4 MG/ML DISP.SYRIN IV PRN (05:05)
--- NOTE | 2021-04-11 07:01 | NUR ---
MS RN CLOSING NOTES PATIENT IS ASLEEP IN BED. A/OX4. NO S/S OF DISTRESS, BREATHING SYMMETRICAL. #22 INTACT AND PATENT. SAFETY MEASURES IN PLACE: BED AT LOWEST POSITION, RAILS UP X2, CALL ELLIS WITHIN REACH. WILL ENDORSE TO NEXT SHIFT FOR PHIL.
[2021-04-11 07:45] LABS: CALCIUM, SERUM 7.9 mg/dL (8.5-10.1); CREATININE 0.9 mg/dL (0.6-1.3); POTASSIUM 3.6 mmol/L (3.5-5.1)
[2021-04-11 08:00] VITALS: BP 119/73
[2021-04-11] MEDS: VANCOMYCIN HCL 0.75 GM in IV D5W 250 ML IV SCH (08:55)
[2021-04-11] MEDS: PANTOPRAZOLE 40 MG TABLET.DR PO SCH (08:55)
[2021-04-11] MEDS: IV D5/ 0.9% NACL 1,000 ML IV PRN (09:23)
[2021-04-11] MEDS: HYDROMORPHONE 1 MG/1 ML DISP.SYRIN IV PRN (11:03)
[2021-04-11 16:00] VITALS: BP 104/59
--- NOTE | 2021-04-11 19:34 | NUR ---
MS RN OPENING NOTE PATIENT RECEIVED LYING IN BED. A/OX4. NO S/S OF DISTRESS, BREATHING SYMMETRICAL. #22 PATENT. SAFETY MEASURES IN PLACE: BED AT LOWEST POSITION, RAILS UP X2, CALL ELLIS WITHIN REACH. WILL CONTINUE TO MONITOR.
[2021-04-11] MEDS: LORAZEPAM INJ 2 MG/ML VIAL IV PRN (19:46)
--- NOTE | 2021-04-11 19:48 | NUR ---
MS/RN NOTES- ATIVAN ATIVAN PRN GIVEN AT 1900, FORGOT TO SCAN. NOTIFIED PHARMACY AND RN VALENTINE.
[2021-04-11] MEDS ORDERED: TEMAZEPAM 15 MG CAPSULE PO ONE (23:00)
[2021-04-12] MEDS: HYDROMORPHONE 1 MG/1 ML DISP.SYRIN IV PRN ×3 (03:46→13:07)
[2021-04-12] MEDS: PIPERACILLIN /TAZOBACTAM 3.375 G in IV D5W 50 ML IV SCH ×2 (05:34→12:18)
--- NOTE | 2021-04-12 07:20 | NUR ---
MS RN OPENING NOTES PATIENT IS ASLEEP IN BED. A/OX4. NO S/S OF DISTRESS. WITH IV ACCESS ON THE LEFT HAND #22 ON SALINE LOCK, PATIENT AND INTACT. PATIENT DOES NOT COMPLAIN OF PAIN AT THIS TIME. SAFETY MEASURES IN PLACE: BED AT LOWEST POSITION, RAILS UP X2, CALL ELLIS WITHIN REACH. WILL CONTINUE TO MONITOR PATIENT.
[2021-04-12 08:00] VITALS: BP 123/66
[2021-04-12 08:09] LABS: CALCIUM, SERUM 8.3 mg/dL (8.5-10.1); POTASSIUM 3.9 mmol/L (3.5-5.1)
[2021-04-12] MEDS: PANTOPRAZOLE 40 MG TABLET.DR PO SCH (08:46)
[2021-04-12] MEDS ORDERED: FERROUS SULFATE (325 MG) 325 MG/TAB TABLET PO SCH (09:00)
--- NOTE | 2021-04-12 11:00 | NUR ---
MS RN NOTE PATIENT SEEN BY DR. SCHERER AND DISCUSSED PLAN FOR DISCHARGE TO [facility] FOR HIGHER LEVEL OF CARE. WILL CONTINUE TO MONITOR PATIENT.
--- NOTE | 2021-04-12 13:10 | NUR ---
MS RN NOTE PATIENT SEEN BY DR. MENDOZA AND DISCUSSED THAT SURGERY WILL CONT BE ABLE TO BE DONE HERE. PATIENT VERBALIZED UNDERSTANDING. PATIENT'S FRIEND CAME AND WAS SAYING THAT THEY WILL GO TO [place] IN [place] BECAUSE THAT IS WHERE HER DIRECTOR MUSIC IS. PATIENT WAS READY TO LEAVE AT THIS POINT AND ASKED FOR DILAUDID FOR PAIN. PATIENT HEALTH TEACHING DONE AND IV ACCESS REMOVED REQUESTED. PATIENT LEFT AWOL. IN STABLE CONDITION AND IN GOOD SPIRIT. PATIENT ACCOMPANIED TO LOBBY ON A WHEELCHAIR WITH FRIEND. ENDORSED ACCORDINGLY.
== END 2021-04-12 13:00 | disposition home or self-care (01) | DRG 374 ==
LOC: ER 00:53 → TRANSITION 05:47 → MED 14:56
PROVIDERS: ADMIT Nurse Practitioner Acute Care; ATTEND Internal Medicine
PROC: 0DBN8ZX Excision of Sigmoid Colon, Via Natural or Artificial Opening Endoscopic, Diagnostic (ICD-10-PCS; principal; 2021-04-09)
DX: C18.7 Malignant neoplasm of sigmoid colon (principal); E43 Unspecified severe protein-calorie malnutrition; K56.51 Intestinal adhesions [bands], with partial obstruction; Z68.1 Body mass index [BMI] 19.9 or less, adult; K51.412 Inflammatory polyps of colon with intestinal obstruction; E87.6 Hypokalemia; N20.0 Calculus of kidney; N73.9 Female pelvic inflammatory disease, unspecified; N80.0 Endometriosis of uterus; R19.09 Other intra-abdominal and pelvic swelling, mass and lump; D18.03 Hemangioma of intra-abdominal structures; M62.50 Muscle wasting and atrophy, not elsewhere classified, unspecified site; Z90.721 Acquired absence of ovaries, unilateral; Z20.822 Contact with and (suspected) exposure to COVID-19; D64.9 Anemia, unspecified; F41.9 Anxiety disorder, unspecified
CPT/HCPCS: 36415; 71260-TC; 72197-TC; 74183-TC; 76856-TC; 80048-TC; 80076-TC; 80202-TC; 81001; 82378; 82728-TC; 82962-TC; 83540-TC; 83605-TC; 83690-TC; 83735-TC; 84100-TC; 84443-TC; 84703-TC; 85025-TC; 86304; 87040-TC; 87081-TC; 87806; 88305-TC; A9575; C9113; G0378; J0290; J0330; J1170; J1580; J1650; J1720; J1885; J2060; J2270; J2405; J2543; J2704; J3370; J3480; J3490; J7030; J7042; J7050; J7060; Q9967